=== PATIENT | female | born 1970 | race Caucasian/White ===

== ENCOUNTER 2022-09-05 19:14 | Emergency (ER) | payer BC ==
[~2022-09-05] VITALS: Ht 162.6 cm; Wt 49.9 kg
[2022-09-05] MEDS ORDERED: ONDANSETRON 4 MG/2 ML VIAL IV ONE (19:45)
[2022-09-05] MEDS ORDERED: HYDROCODONE/APAP 10-325 MG TABLET ONE (19:45)
[2022-09-05] MEDS ORDERED: ASPIRIN 81 MG TAB.CHEW ONE (19:45)
[2022-09-05] MEDS ORDERED: ONDANSETRON 4 MG/2 ML VIAL ONE (19:45)
[2022-09-05] MEDS ORDERED: ASPIRIN 81 MG TAB.CHEW PO ONE (19:45)
[2022-09-05] MEDS ORDERED: HYDROCODONE/APAP 10-325 MG TABLET PO ONE (19:45)
[2022-09-05 19:58] LABS: HEMATOCRIT 36.4 % (31.2-41.9); MEAN CORPUSCULAR HEMOGLOBIN 33.3 uug (24.7-32.8); MEAN CORPUSCULAR VOLUME 96.9 fL (75.5-95.3); PLATELET COUNT (AUTO) 335 K/uL (179-408)
--- NOTE | 2022-09-05 20:05 | NUR ---
pt's eveliaband at bedside.
[2022-09-05] MEDS ORDERED: PROG200C15 PO (20:15)
[2022-09-05] MEDS ORDERED: LEVO25TA2 PO (20:15)
[2022-09-05] MEDS ORDERED: SPIR100T5 PO (20:15)
[2022-09-05 20:26] LABS: ALANINE AMINOTRANSFERASE 22 U/L (14-59); ALKALINE PHOSPHATASE 68 U/L (50-136); ASPARTATE AMINOTRANSFERASE 20 U/L (15-37); BILIRUBIN,DIRECT 0.1 mg/dL (0.0-0.2); BILIRUBIN,TOTAL 0.2 mg/dL (0.2-1.0); CARBON DIOXIDE 32 mmol/L (21-32); CHLORIDE 102 mmol/L (98-107); CREATININE 0.9 mg/dL (0.6-1.3); GLUCOSE 90 mg/dL (74-106); POTASSIUM 4.3 mmol/L (3.5-5.1); TOTAL PROTEIN, SERUM 7.4 g/dL (6.4-8.2); UREA NITROGEN, BLOOD 12 mg/dL (7-18)
[2022-09-05 20:34] LABS: *MONOTEST POSITIVE (NEGATIVE)
[2022-09-05] MEDS ORDERED: HYDROMORPHONE 1 MG/1 ML DISP.SYRIN ONE ×2 (21:58→22:28)
[2022-09-05] MEDS ORDERED: HYDROMORPHONE 1 MG/1 ML DISP.SYRIN IV ONE ×2 (22:00→22:30)
[2022-09-05] MEDS ORDERED: ONDA4TAB5 PO (22:13)
[2022-09-05] MEDS ORDERED: HYDR-4209 PO (22:13)
--- NOTE | 2022-09-05 22:55 | NUR ---
Patient discharged to home in stable condition. Written and verbal after care instructions given. Patient verbalizes understanding of instructions. Stressed follow up or return to ER for worsening s/s. pt walked out accompanied by with steady gait.
[2022-09-05 23:19] VITALS: BP 110/84
== END 2022-09-05 23:00 | disposition home or self-care (01) ==
LOC: ER 19:17
DX: R07.9 Chest pain, unspecified (principal); M79.7 Fibromyalgia; Z20.822 Contact with and (suspected) exposure to COVID-19
CPT/HCPCS: 99285; 96374; 71045; 96375; 87426; 87804 ×2; 80076; 80048; 83880; 84443; 85025; 85379; 86308; 84484 ×2; 36415; 93005; 96376; J2405; J1170 ×2; A4663

== ENCOUNTER 2024-10-07 14:25 | Emergency (ER) | payer BC ==
[~2024-10-07] VITALS: Ht 162.6 cm; Wt 51.7 kg
[~2024-10-07 14:25] MED LIST: HYDR-4209 PO; LEVO25TA2 PO; ONDA4TAB5 PO; PROG200C15 PO; SPIR100T5 PO
[2024-10-07] MEDS ORDERED: HYDROCODONE/APAP 10-325 MG TABLET ONE (16:02)
[2024-10-07] MEDS: HYDROCODONE/APAP 10-325 MG TABLET PO ONE (16:03)
[2024-10-07] MEDS ORDERED: DAPTOMYCIN IV SCH (17:30)
[2024-10-07] MEDS ORDERED: MEROPENEM 1 G in IV NORMAL SALINE 100 ML IV SCH (17:30)
[2024-10-07] MEDS ORDERED: NORMAL SALINE IV SCH (17:30)
[2024-10-07] MEDS ORDERED: IV NS 1000 ML 1,000 ML IV ONE (17:30)
[2024-10-07] MEDS ORDERED: HYDR-3980 PO (17:48)
[2024-10-07 18:07] VITALS: BP 144/68; TEMP 98; O2SAT 98
== END 2024-10-07 18:08 | disposition home or self-care (01) ==
LOC: ER 14:25
DX: S01.21XA Laceration without foreign body of nose, initial encounter (principal); M79.7 Fibromyalgia; Z79.890 Hormone replacement therapy; Z79.899 Other long term (current) drug therapy; Z88.7 Allergy status to serum and vaccine; Z90.49 Acquired absence of other specified parts of digestive tract; W01.0XXA Fall on same level from slipping, tripping and stumbling without subsequent striking against object, initial encounter; Y93.89 Activity, other specified; Y92.89 Other specified places as the place of occurrence of the external cause; Y99.8 Other external cause status
CPT/HCPCS: 70160; A4606; A4663; J0878